=== PATIENT | male | born 1985 | race Caucasian/White ===

== ENCOUNTER 2019-06-30 12:46 | Outpatient (CLI) | payer OTHER ==
--- NOTE | 2019-06-30 14:57 | CONSULTATION NOTE ---
Information from patient questionnaire entered by Danica Campos. I have reviewed and concur with the information entered by Danica Campos. This document represents the service I personally performed and the decisions made by me, Marj Mayo, RN, MSN, FLAT[employer] SEWING MACHINE OPERATOR. - History of Present Illness AUDRA MÉNDEZ was diagnosed to have unknown severity of apnea in May 2017 at [place], [place]. He presented today for consultation to continue CPAP therapy with [facility]. His sleep studies were not available at time of consult and requested same day. His main reason for being here today is to update his prescription for supplies. 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 Since diagnosis of sleep apnea, he has used CPAP nightly. With CPAP therapy, he slept better, no longer woke to gasping or reflux and was significantly more rested during the day. However, since return from deployment this past January, he feels that the CPAP pressure seems inadequate. His spouse has also noted a snore when he is using CPAP. He has noted increased fatigue as well. He has only gained about 5 pounds recently. He last received update of equipment last July. Last mask cushion cushion in January. He uses a Full Face [employer] Pay[employer] mask. Compliance download report shows he uses a Res [employer] AirSense device set at 9cmH20. He uses the device nightly for about 7.28 hours with 95% compliance of CPAP use more than 4 hours the past 180 days. His residual AHI is 2.4. Average leaks liters per minute is 6. The patient tells me that he normally goes to bed around 10:00-11:00 pm, and it takes him approximately 10 minutes to fall asleep. He has been told that he snores loudly even with CPAP recently. He has not been observed to stop breathing in his sleep with CPAP. His spouse can still sleep in the same bed but she will waken him to turn on his side where snoring is less. He can recall waking up on the average of 1 times during the night. Most of the time he wakes up because of occasionally his own snoring and having to gasp for air with CPAP recently. There is a lot of tossing and turning in his sleep. Generally there is no recollection of dreams. He usually wakes up at 5:25 and does not feel refreshed. He usually does not have a morning headache. During the day he complains of feeling sleepy and fatigued. He has never fallen asleep while driving nor has any accident due to sleepiness. He usually does not take naps during the day. If he naps, upon falling asleep during the day he denies having vivid dreams. There is somniloquy (sleep talking) but no somnambulism (sleep walking). He has never experienced sleep paralysis, cataplexy, or symptoms of restless leg syndrome. He reports having impaired concentration during the day. 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 Patient is and lives in [place]. Smoked in the past 12 months: Yes Cigarettes per day (20/pack): 10 (He is currently reducing cigarette intake with vaping. ) Years of smokin Smoking Pack Years: 8.5 Alcohol use: Yes Amount and frequency: 1-2 drinks 1-2 times/week Caffeine use: Yes Amount and frequency: 2 8 ounce cup of coffee and occasional soda - Family History Family history of sleep disordered breathing: Yes Family Hx Sleep Apnea: Mother: Snoring (Both use a CPAP), Father: Snoring - Review of Systems Weight gain over past 5 years: Patient fluctuates weight from 130-145pounds Cardiovascular: denies: high blood pressure, palpitations, chest pain, irregular heart rate or pulse, leg or foot swelling, have to sleep sitting up, other: Respiratory: denies: shortness of breath, wheeze, sputum production, chronic cough, other: Gastrointestinal: reports: heartburn (No heart burn since treatment of apnea with use of CPAP.). denies: difficulty swallowing, nausea, vomitting, diarrhea, abdominal pain, other: Urinary: denies: incontinence, frequency, urgency, impotence, other: Neurological: reports: headaches (tension headaches relieved by ibuprofen). denies: seizure, head trauma, disorientation, speech dysfunction, gait or meng nce problems, fainting or unconsciousness, other: Psychiatric: denies: Attention Deficit Hyperactivity, anxiety, depression, mood disorder, claustrophobia, other: Ear/Nose/Throat: reports: nasal congestion (chronic nasal congestion since 2009 when socked in face. He also had difficulty breathing out of left nostril.), nose bleeds (occasional when he has noted increased dryness in mask and last episode was one month ago.), dry mouth/throat (He wakes with a dry nose and mouth and throat), injury to nose (see nasal congestion 2009), wisdom teeth r emoved. denies: sinus problems, hoarseness, tonsillectomy, other: Endocrine: denies: thyroid disease, history of goiter, sluggishness, too hot or cold, excessive thirst, increased appetite, increased urination, unexplained weakness, other: Musculoskeletal: reports: joint pain (Chronic knee pain since injury and surgery - right), back pain (Chronic low back pain -last treatment with chiropractor reduced pain.). denies: neck pain, joint swelling, muscle pain or cramping, mobility problems, other: Immunologic: denies: sneezing, rash, itching, allergies to food or environment, other: - Physical Examination Heart Rate: 74 O2 Saturation: 98 Height: 6 ft 3.6 in Weight (kg): 107.184 kg Body Mass Index: 29.0 BMI Classification: Overweight Neck circumference: 16 Nostrils: partially obstructed (left nare) Turbinates: normal Septum: deviated right Mouth and throat: narrow oropharynx Soft palate: long Hard palate: normal Uvula: long Tongue: normal in size Tonsils: small Chin and jaw: normal size and position Neck: normal w/o lymphadenopathy or thyromegaly Heart: regular rate and rhythm Lungs: clear bilaterally Abdomen: soft, non-tender Extremities: no edema or clubbing Neurologic: intact - Impression 1. Obstructive Sleep Apnea-Hypopnea Syndrome, as previously diagnosed of unknown severity. Thus his sleep study completed in 2017 will be requested. If unable to obtain his previous sleep study another polysomnography will be ordered to evaluate his sleep disordered breathing as a diagnosis is needed for treatment and supplies. A prescription for supplies will be made once the sleep study is obtained and reviewed. Until then I will have my outpatient program coordinator inform him of the national companies available in this area for supply replacement. I also obtained data from current company in [facility] and have staff see if can retrieve sleep study. Patient would like to try to stay with same company if possible. For his air hunger and snoring, I will change his CPAP pressure from 9cmH20 to [id number] which can accommodate for his weight fluctuation as well. I will have his CPAP pressure changed in office if possible until he can be started with a new supply company. He is advised to contact this office if the pressure change is uncomfortable. For his oral dryness, he was instructed how to change the humidity and heated settings on a sample CPAP with rationale discussed. The pathophysiology of obstructive sleep apnea-hypopnea syndrome was discussed with the patient and health risks of cardiovascular and cerebrovascular disease if not treated. AAS brochure for obstructive sleep apnea-hypopnea syndrome given and reviewed. Risks of drowsy driving discussed in detail. Patient denies drowsy driving. - Plan Schedule polysomnography only if unable to obtain previous sleep study. Avoid long distance driving or driving when feeling sleepy. Avoid alcohol, sedative and muscle relaxant around bedtime. Attempt to lose weight. Change to autoCPAP [id number]. Make prescription for update of supplies, once sleep study obtained. Transfer to local national medical supply company if unable to continue with present company Return for follow-up in 2 months. I spent 100% of this [50] minute visit face to face with the patient with greater than 50% of this was spent time counseling the patient and coordination of care.
== END 2019-06-30 12:47 | disposition home or self-care (01) ==
LOC: SC 12:46
PROVIDERS: ATTEND Nurse Practitioner Family
DX: G47.33 Obstructive sleep apnea (adult) (pediatric) (principal); E66.3 Overweight; Z68.29 Body mass index [BMI] 29.0-29.9, adult
CPT/HCPCS: 99204; 99212

== ENCOUNTER 2019-08-31 13:35 | Outpatient (CLI) | payer OTHER ==
--- NOTE | 2019-08-31 14:39 | SLEEP CARE CONSULTATION ---
Information from patient questionnaire entered by Danica Campos. I have reviewed and concur with the information entered by Danica Campos. This document represents the service I personally performed and the decisions made by me, Marj Mayo, RN, MSN, [employer] SALES REPRESENTATIVE. History of Present Illness Previous diagnosis: Severe, Obstructive Sleep Apnea-Hypopnea Syndrome AHI: 66.9 Reason for CPAP/BiPAP follow up: other (2 month follow up) Equipment type: CPAP Equipment obtained from: [employer] Mask style: Full face Mask brand: QuadROI Backup mask available: Yes Last cushion change: a month ago Prior sleep studies: Yes Year and Where: 2016 [place], [place] HPI additional information: The increase in pressure has resolved air hunger. He also feels more rested. His previous sleep study from [facility] was received. It showed that at a weight of 254 pounds he had very severe apnea with a AHI of 66.9 with 134.5 minutes of sleep with oxygen saturation below 90% of a total 464 minute sleep study duration. CPAP Compliance Data - Data Reviewed with Patient Average duration of nightly device use: 7H 18M Compliance rate %: 100 Current pressure setting (cmH2O): 10-12 Humidity setting: ? Heated hose setting: ? Average residual AHI: 2.6 Subjective Patient concerns: reports: nasal congestion (most days), dry mouth, nose, throat (dry nose). denies: aerophagia, mask discomfort, air blowing in eyes, mask leak noise, condensation in mask/hose, epistaxis Observed to snore while using device: Yes (once only. ) Current pressure setting perceived as: comfortable On therapy, patient: reports: sleeping better, awakening more refreshed, being more awake and alert during the day, more rested overall. denies: drowsiness while driving Initial [place] Sleepiness Scale score: 12 Current [place] Sleepiness Scale score: 4 Allergies and Home Medications Known drug allergies: No Home medication list reviewed: Yes Allergy and home medication list: Mobic daily for one month after fall in training and brusing of ribs. Review of Systems Review of systems same as previous: No (fall in training with bruised ribs ) Physical Exam Blood Pressure: 104/70 Cuff size: long Heart Rate: 74 O2 Saturation: 98 Height: 6 ft 3.75 in Weight: 239 lb 3.2 oz Body Mass Index: 29.2 BMI Classification: Overweight Impression and Plan 1. Obstructive Sleep Apnea-Hypopnea Syndrome, very apnea , with good treatment compliance and good apnea control. On CPAP therapy, the patient has better sleep quality and is more rested overall. The pressure change reduced air hunger and reduced sleepiness symptoms. For nasal congestion and nasal dryness, he is advised to increase his humidity. He was shown again how to check humidity and heated hose and to change with rationale discussed. Now that we have his sleep study results, I will make a DWO for updating his supplies. The supply replacment schedule given and reviewed. I also gave him a cleaning reference sheet and emphasized emptying the humidifier daily with rationale and answered questions. Patient would like to lose 20 pounds. I explained how significant weight loss can reduce CPAP pressure requirements and symptoms to report. Patient's apnea severity and rationale for treatment to reduce apnea, improve sleep quality and reduce cardiovascular and cerebrovascular events was reviewed. * Continue CPAP pressure at 10-12 cmH2O * DWO for update supplies * Adjust humidity * Notify me if snoring with mask or feeling that the pressure is too much or too little * Attempt to lose weight * Return for follow up in 1 year , or sooner if concerns arise I spent 100% of this 30 minute visit face to face with the patient with greater than 50% of this was spent time counseling the patient and coordination of care.
[2019-08-31 14:40] VITALS: BP 104/70
== END 2019-08-31 13:36 | disposition home or self-care (01) ==
LOC: SC 13:35
PROVIDERS: ATTEND Nurse Practitioner Family
DX: G47.33 Obstructive sleep apnea (adult) (pediatric) (principal)
CPT/HCPCS: 99212; 99214

== ENCOUNTER 2021-07-20 13:11 | Outpatient (CLI) | payer OTHER ==
--- NOTE | 2021-07-20 14:06 | SLEEP CARE CONSULTATION ---
Information from patient questionnaire entered by Hina Babin. I have reviewed and concur with the information entered by Hina Babin. This document represents the service I personally performed and the decisions made by , Auer Powers ARNP. History of Present Illness Service Date and Time: 07/20/2021 1311 Previous diagnosis: Very Severe, Obstructive Sleep Apnea-Hypopnea Syndrome AHI: 66.9 (in 2017) Reason for follow up: annual (last seen 08/2019) Equipment type: CPAP Equipment obtained from: Other ([facility]) Mask style: Full face Mask brand: Yang Herbert [employer] ([employer]) Backup mask available: Yes (old mask) Last cushion change: no too long ago? Prior sleep studies: Yes Year and Where: 2017 - [facility] additional information: AUDRA MÉNDEZ was diagnosed to have very severe, AHI 66.9, obstructive sleep apnea-hypopnea syndrome and returned today for CPAP therapy annual follow-up. CPAP Compliance Data - Data Reviewed with Patient Average duration of nightly device use: 6 hr 49 min Compliance rate %: 100 (180 days) Current pressure setting (cmH2O): 10-12 Humidity settin Average residual AHI: 2.6 Subjective Missed days of use due to: reports: travel Patient concerns: reports: dry mouth, nose, throat (mild mouth dryness), other (snore while using device). denies: aerophagia, mask discomfort, air blowing in eyes, mask leak noise, condensation in mask/hose, nasal congestion, epistaxis Observed to snore while using device: Yes (occasional) Current pressure setting perceived as: comfortable On therapy, patient: reports: sleeping better, awakening more refreshed, being more awake and alert during the day, more rested overall. denies: drowsiness while driving Initial [place] Sleepiness Scale score: 12 (in 2019) Current [place] Sleepiness Scale score: 7 Allergies and Home Medications Home medication list reviewed: Yes (no changes) Review of Systems Review of systems same as previous: Yes (no changes) Physical Exam Heart Rate: 67 O2 Saturation: 98 Height: 6 ft 3.75 in Weight: 237 lb Weight change since last visit: 30 lb loss this year Body Mass Index: 29.0 BMI Classification: Overweight Impression and Plan 1. Obstructive Sleep Apnea-Hypopnea Syndrome, very severe, with excellent treatment compliance and good apnea control. On CPAP therapy, the patient has better sleep quality and is more rested overall. He has some mild mouth dryness. Oral dryness can be reduced by adjusting humidity setting higher or heated hose lower or by adjusting both settings. Verbal instructions given on how to change humidity and heated hose settings with rationale explaining why to change. Patient advised that chronic oral dryness can affect dental health. Patient's apnea severity and rationale for treatment to reduce apnea, improve sleep quality and reduce cardiovascular and cerebrovascular events was reviewed. Patient has lost about 30 pound since his last visit. I advised him to continue until he reaches his ideal healthy weight. He voiced understanding. * Continue auto CPAP pressure at 10-12 cmH2O * Notify me if snoring with mask or feeling that the pressure is too much or too little * Attempt to lose weight * Call this office if any problems using CPAP * Return for follow up in 1 year, or sooner if concerns arise Counseling Topics: Spare mask, Weight loss health impact Visit Type: In Office Time Spent with Patient (minutes): 16 Provider Statement: I spent 100% of the Face to Face Visit with the patient with greater than 50% spent counseling the patient and coordination of care.
== END 2021-07-20 13:12 | disposition home or self-care (01) ==
LOC: SC 13:11
PROVIDERS: ATTEND Nurse Practitioner Family
DX: G47.33 Obstructive sleep apnea (adult) (pediatric) (principal)
CPT/HCPCS: 99212